=== PATIENT | female | born 1975 | race Caucasian/White ===

== ENCOUNTER 2019-09-19 16:52 | Emergency (ER) | payer OTHER ==
[~2019-09-19] VITALS: Ht 157.5 cm; Wt 84.0 kg
[2019-09-19 18:39] LABS: BASOPHILS # (AUTO) 0.1 X10'3 (0-0.2); BASOPHILS % (AUTO) 0.5 % (0-1); EOSINOPHILS # (AUTO) 0.1 X10'3 (0-0.9); HEMATOCRIT 39.5 % (35.0-45.0); HEMOGLOBIN 12.9 g/dl (12.0-16.0); LYMPHOCYTES # (AUTO) 2.8 X10'3 (1.1-4.8); LYMPHOCYTES % (AUTO) 24.9 % (21-51); MEAN CORPUSCULAR HGB CONC 32.8 g/dL (33.0-36.5); MEAN CORPUSCULAR VOLUME 88.5 FL (78-98); MEAN PLATELET VOLUME 8.1 FL (7.4-10.4); MONOCYTES # (AUTO) 0.7 X10'3 (0-0.9); MONOCYTES % (AUTO) 6.3 % (2-12); NEUTROPHILS # (AUTO) 7.6 X10'3 (1.8-7.7); NEUTROPHILS % (AUTO) 67.3 % (42-75); PLATELET COUNT 264 X10'3 (140-440); RED BLOOD COUNT 4.47 X10'6 (4.20-5.60); WHITE BLOOD COUNT 11.3 X10'3 (4.5-11.0)
[2019-09-19 18:44] LABS: CLARITY,URINE CLEAR (Clear); COLOR,URINE YELLOW (Yellow); GLUCOSE, URINE NEGATIVE (Neg); KETONES,URINE NEGATIVE (Neg); LEUKOCYTE ESTERASE ,URINE NEGATIVE (Neg); NITRITES, URINE NEGATIVE (Neg); OCCULT BLOOD,URINE NEGATIVE (Neg); PROTEIN,URINE NEGATIVE (Neg); UROBILINOGEN,URINE 0.2 E.U/dL (0.2-1.0)
[2019-09-19 18:51] LABS: URINE HCG NEGATIVE (NEG)
[2019-09-19 18:52] LABS: ALANINE AMINOTRANSFERASE 16 U/L (12-78); ALBUMIN 3.3 G/DL (3.4-5.0); ALBUMIN/GLOBULIN RATIO 0.8 (1.1-1.5); ALKALINE PHOSPHATASE 88 IU/L (46-116); ANION GAP 6 (8-16); ASPARTATE AMINO TRANSFERASE 16 U/L (10-37); BILIRUBIN,TOTAL 0.2 MG/DL (0.1-1.0); BLOOD UREA NITROGEN 9 MG/DL (7-18); BUN/CREATININE RATIO 9.4 (6.6-38.0); CALCIUM 8.2 MG/DL (8.5-10.1); CHLORIDE 105 MMOL/L (99-107); CREATININE 0.96 MG/DL (0.40-0.90); GLUCOSE 97 MG/DL (70-104); MAGNESIUM 1.9 MG/DL (1.5-2.4); POTASSIUM 3.4 MMOL/L (3.5-5.1); SODIUM 141 MMOL/L (135-145); TOTAL CARBON DIOXIDE 30.5 MMOL/L (24-32); TOTAL PROTEIN 7.4 G/DL (6.4-8.2); eGFR 63 ML/MIN
[2019-09-19 18:56] LABS: UA COLLECTION TYPE CLN CATCH MIDSTREAM
--- NOTE | 2019-09-19 19:15 | NUR ---
NM pagged for study that was ordered awaiting a call back
--- NOTE | 2019-09-19 19:52 | NUR ---
UPDATED PLAN OF CAR WITH PATIENT WHO IS AWAITING FURTHER STUDIES AT THIS TIME
--- NOTE | 2019-09-19 20:10 | NUR ---
CHECKED ON THE RADILOLOGY PAGE SENT FOR nm LUNG STUDY JOVANI WAS ORDER . NO PAGE RETURNED . NOTIFIED CHARGE NURSE
[2019-09-19] MEDS ORDERED: enoxaparin 100mg/ml syringe SUBCUT ONE (20:40)
[2019-09-19 21:12] VITALS: BP 128/88
[2019-09-20] MEDS ORDERED: METO25TA6 PO (09:24)
== END 2019-09-19 21:05 | disposition home or self-care (01) ==
LOC: ER 16:53
DX: R00.2 Palpitations (principal); R06.02 Shortness of breath; R25.2 Cramp and spasm; R53.81 Other malaise; R79.1 Abnormal coagulation profile
CPT/HCPCS: 36415; 71045; 80053; 81003; 81025; 83735; 84443; 84484; 85025; 85379; 93005; 99285; J1650

== ENCOUNTER 2019-09-20 08:34 | Emergency (ER) | payer OTHER ==
[~2019-09-20] VITALS: Ht 157.5 cm; Wt 80.0 kg
[2019-09-20] MEDS ORDERED: METO25TA6 PO (09:24)
--- NOTE | 2019-09-20 10:21 | NUR ---
PT TO VASCULAR.
--- NOTE | 2019-09-20 10:45 | NUR ---
pt back from [facility].
[2019-09-20 11:58] VITALS: BP 122/73
== END 2019-09-20 12:00 | disposition home or self-care (01) ==
LOC: ER 08:35
DX: R07.89 Other chest pain (principal); R05 Cough; G43.909 Migraine, unspecified, not intractable, without status migrainosus; G89.29 Other chronic pain; Z90.49 Acquired absence of other specified parts of digestive tract
CPT/HCPCS: 78582; 93005; 99284; A9539; A9540; 99283